=== PATIENT | female | born 1995 | race Two or more races ===

== ENCOUNTER 2016-11-12 21:09 | Emergency (ER) | payer OTHER ==
[~2016-11-12] VITALS: Ht 177.8 cm; Wt 113.4 kg
[2016-11-12] MEDS ORDERED: NKM (21:26)
[2016-11-12 21:28] VITALS: BP 149/65
[2016-11-12] MEDS ORDERED: Acetaminophen 500mg (ES) tab ORAL ONE (21:30)
--- NOTE | 2016-11-12 21:32 | Emergency Room Report ---
History of Present Illness General Chief Complaint: Pain Source: Patient Present Illness HPI Patient twisted her L foot. Pain 11/19 - sharp/aching, radiates slightly to ankle = dorsum of foot. Hard to walk. No meds taken. No numbness. Happened 1: 30 am. Job requires lifting. Motrin causes break out around eyes. Allergies: Coded Allergies: IBUPROFEN (Verified Allergy, Intermediate, swelling, 11/12/16) Patient History Past Medical History: see triage record Social History: Denies: smoking - former Social History Narrative stocking Last Menstrual Period: 08/25/16 Now: No : 1 Para: 1 Reviewed Nursing Documentation: PMH: Agreed, PSxH: Agreed Nursing Documentation-PMH Past Medical History: No Stated History Review of Systems Constitutional: Denies: fever Respiratory: Denies: shortness of breath Cardiovascular: Denies: chest pain, edema Musculoskeletal: Reports: see HPI Skin: Denies: rash Neurological: Reports: see HPI Physical Exam Vital Signs Date Time Temp Pulse Resp B/P Pulse Ox O2 Delivery O2 Flow Rate FiO2 11/12/16 21:22 99.0 70 16 149/65 100 Room Air Sp02 EP Interpretation: reviewed, normal General Appearance: well appearing, no apparent distress Head: normocephalic, atraumatic Eyes: bilateral eye normal inspection ENT: hearing grossly normal, normal voice Neck: full range of motion, supple Respiratory: no respiratory distress, speaking full sentences Cardiovascular #1: normal peripheral pulses, regular rate, rhythm Cardiovascular #2: 2+ dorsalis pedis (L) Musculoskeletal: back normal, digits/nails normal, no calf tenderness, other - tender dorsum of foot, no deformity, ankle stable and not tender. 5th MT not tender. Neurologic: alert, motor strength/tone normal, sensory intact Psychiatric: mood/affect normal Skin: no rash Medical Decision Making Diagnostic Impression: Primary Impression: Sprain of left foot Qualified Codes: S93.602A - Unspecified sprain of left foot, initial encounter ER Course Patient with pain in foot after twisting injury. Ddx: fracture, sprain, strain. Xrays indicated. Also patient will be treated with analgesia. Xrays without fx. Improved with tylenol. An juan carlos was applied by the claim technician. Position was excellent and neurovascular is normal. Other X-Ray Diagnostic Results X-Ray ordered: L foot # of Views/Limited Vs Complete: 3 View EP Interpretation: Yes Interpretation: no fractures, no dislocation, no soft tissue swelling Indication: Pain Impression: No acute disease Interpreting ER Provider: Electronically signed by Marcus Dyer MD Last Vital Signs Date Time Temp Pulse Resp B/P Pulse Ox O2 Delivery O2 Flow Rate FiO2 11/12/16 22:29 99.0 70 16 149/65 100 Room Air Status: improved Disposition: HOME, SELF-CARE Condition: Improved Scripts Tramadol Hcl* (ULTRAM*) 50 Mg Tablet 50 MG ORAL Q6H Y for For Pain, #10 TAB 0 Refills Prov: Marcus Dyer M.D. 11/12/16 Naproxen (Naproxen) 250 Mg Tablet 250 MG PO Q8HR Y for For Pain, #14 TAB Prov: Marcus Dyer M.D. 11/12/16 Marcus Dyer M.D. Nov 12, 2016 21:32
[2016-11-12] MEDS ORDERED: NAPROXEN250 M1 PO (22:20)
[2016-11-12] MEDS ORDERED: TRAMADOL HCL50 MG ORAL (22:20)
[2016-11-12 22:29] VITALS: BP 149/65
== END 2016-11-12 22:31 | disposition home or self-care (01) ==
LOC: EMR 21:38
DX: S93.602A Unspecified sprain of left foot, initial encounter (principal); X50.1XXA Overexertion from prolonged static or awkward postures, initial encounter; Y92.89 Other specified places as the place of occurrence of the external cause; Z88.6 Allergy status to analgesic agent
CPT/HCPCS: 29540; 99284

== ENCOUNTER 2017-05-07 21:35 | Emergency (ER) | payer OTHER ==
[~2017-05-07] VITALS: Ht 180.3 cm; Wt 104.3 kg
[~2017-05-07 21:35] MED LIST: NAPROXEN250 M1 PO; NKM; TRAMADOL HCL50 MG ORAL
[2017-05-07] MEDS ORDERED: FLONASE SENSIM9.9 ML NS (22:02)
[2017-05-07] MEDS ORDERED: CLARITIN-D 241 EACH PO (22:02)
--- NOTE | 2017-05-07 22:03 | Emergency Room Report ---
History of Present Illness General Chief Complaint: Flu Like Symptoms Source: Patient Present Illness HPI Is a 22-year-old female who has history of deviated septum and has sinus problem. So this occur frequently. Worse in the last 2 weeks. No fever chills but no nausea no vomiting. Does have runny nose and sinus headache. Denies any other complaint. Use Afrin without much relief. Allergies: Coded Allergies: IBUPROFEN (Verified Allergy, Intermediate, swelling, 11/12/16) Patient History Past Medical History: see triage record, old chart reviewed Past Surgical History: other Pertinent Family History: none Last Menstrual Period: 01/06/17 Now: No : 1 Para: 1 Immunizations: other Reviewed Nursing Documentation: PMH: Agreed, PSxH: Agreed Nursing Documentation-PMH Past Medical History: No History, Except For Review of Systems Eye: Denies: eye pain, blurred vision ENT: Reports: nose congestion, Denies: ear pain, throat swelling Respiratory: Denies: cough, shortness of breath Cardiovascular: Denies: chest pain, palpitations Gastrointestinal: Denies: abdominal pain, diarrhea, nausea, vomiting Musculoskeletal: Denies: back pain, joint pain Skin: Denies: rash Neurological: Denies: headache, numbness Endocrine: Denies: increased thirst, increased urine Hematologic/Lymphatic: Denies: easy bruising All Other Systems: negative except mentioned in HPI Physical Exam Vital Signs Date Time Temp Pulse Resp B/P (MAP) Pulse Ox O2 Delivery O2 Flow Rate FiO2 05/07/17 21:38 98.4 90 18 141/80 100 Room Air vitals normal Sp02 EP Interpretation: reviewed, normal General Appearance: well appearing, no apparent distress, alert Head: normocephalic, atraumatic Eyes: bilateral eye PERRL, bilateral eye EOMI ENT: hearing grossly normal, normal pharynx, other - turbinate enlarged mostly in the right Neck: full range of motion, supple, no meningismus Respiratory: chest non-tender, lungs clear, normal breath sounds Cardiovascular #1: regular rate, rhythm, no murmur Gastrointestinal: normal bowel sounds, non tender, no mass, no organomegaly, no bruit, non-distended Musculoskeletal: back normal, gait/station normal, normal range of motion Psychiatric: mood/affect normal Skin: warm/dry Medical Decision Making Diagnostic Impression: Primary Impression: Rhinitis Qualified Codes: J00 - Acute nasopharyngitis [common cold] ER Course Patient with a rhinitis. Could be allergic versus infectious. She is otherwise stable. No evidence of bacterial infection. We'll discharge him. Last Vital Signs Date Time Temp Pulse Resp B/P (MAP) Pulse Ox O2 Delivery O2 Flow Rate FiO2 05/07/17 21:38 98.4 90 18 141/80 100 Room Air Status: improved Disposition: HOME, SELF-CARE Condition: Stable Scripts Fluticasone Furoate (FLONASE SENSIMIST) 9.9 Ml [place].susp 9.9 ML NS DAILY, #1 UNIT Prov: CLAUDIA FONG M.D. 05/07/17 Loratadine/Pseudoephedrine (CLARITIN-D 24 HOUR TABLET) 1 Each Tab.er.24h 1 TAB PO DAILY, #30 TAB Prov: CLAUDIA FONG M.D. 05/07/17 Additional Instructions: Followup with your DrJeffrey 7 days. You may need a referral to see an ear nose and throat Dr. Return if worse. CLAUDIA FONG M.D. May 07, 2017 22:03
[2017-05-07 22:07] VITALS: BP 141/80
== END 2017-05-07 22:07 | disposition home or self-care (01) ==
LOC: EMR 21:57
DX: J00 Acute nasopharyngitis [common cold] (principal); Z88.6 Allergy status to analgesic agent
CPT/HCPCS: 99283